=== PATIENT | female | born 1960 | race Caucasian/White ===

== ENCOUNTER 2022-02-03 12:31 | Inpatient (IN) | payer MEDICAID ==
[~2022-02-03] VITALS: Ht 172.7 cm; Wt 88.1 kg
[2022-02-03 13:17] LABS: BASOPHILS % (AUTO) 0.2 % (0-1); EOSINOPHILS # (AUTO) 0.1 X10'3 (0-0.9); EOSINOPHILS % (AUTO) 0.3 % (0-6); HEMATOCRIT 24.3 % (35.0-45.0); HEMOGLOBIN 7.8 g/dl (12.0-16.0); LYMPHOCYTES # (AUTO) 2.8 X10'3 (1.1-4.8); LYMPHOCYTES % (AUTO) 14.6 % (21-51); MEAN CORPUSCULAR HEMOGLOBIN 25.8 PG (27.0-31.0); MEAN CORPUSCULAR HGB CONC 32.2 g/dL (33.0-36.5); MEAN PLATELET VOLUME 7.3 FL (7.4-10.4); MONOCYTES # (AUTO) 1.3 X10'3 (0-0.9); MONOCYTES % (AUTO) 6.5 % (2-12); NEUTROPHILS # (AUTO) 15.1 X10'3 (1.8-7.7); NEUTROPHILS % (AUTO) 78.4 % (42-75); PLATELET COUNT 466 X10'3 (140-440); RED BLOOD COUNT 3.03 X10'6 (4.20-5.60); RED CELL DISTRIBUTION WIDTH 16.1 % (11.5-14.5); WHITE BLOOD COUNT 19.3 X10'3 (4.5-11.0)
[2022-02-03 13:28] LABS: ALANINE AMINOTRANSFERASE 23 U/L (12-78); ALBUMIN 3.4 G/DL (3.4-5.0); ALBUMIN/GLOBULIN RATIO 0.9 (1.1-1.5); ALKALINE PHOSPHATASE 177 IU/L (46-116); ANION GAP 13 (8-16); ASPARTATE AMINO TRANSFERASE 36 U/L (10-37); BILIRUBIN,TOTAL 0.5 MG/DL (0.1-1.0); BLOOD UREA NITROGEN 67 MG/DL (7-18); BUN/CREATININE RATIO 32.7 (6.6-38.0); CHLORIDE 104 MMOL/L (99-107); CREATININE 2.05 MG/DL (0.40-0.90); GLUCOSE 114 MG/DL (70-104); LIPASE 254 U/L (73-393); POTASSIUM 5.3 MMOL/L (3.5-5.1); SODIUM 136 MMOL/L (135-145); TOTAL CARBON DIOXIDE 19.2 MMOL/L (24-32); TOTAL PROTEIN 7.2 G/DL (6.4-8.2); eGFR 25 ML/MIN
[2022-02-03 14:37] LABS: APTT 64 SECONDS (22-32)
[2022-02-03 14:40] LABS: NUCLEATED RED BLOOD CELLS 1 /100WBC (0-0); PLATELET ESTIMATE INCREASED; POLYCHROMASIA 1+; TOTAL CELLS COUNTED 100; TOXIC VACUOLATION FEW
[2022-02-03 14:41] LABS: ANISOCYTOSIS 1+
[2022-02-03 15:08] LABS: CLARITY,URINE SLIGHTLY CLOUDY (Clear); GLUCOSE, URINE NEGATIVE (Neg); KETONES,URINE NEGATIVE (Neg); LEUKOCYTE ESTERASE ,URINE LARGE (Neg); NITRITES, URINE NEGATIVE (Neg); OCCULT BLOOD,URINE TRACE-INTACT (Neg); PROTEIN,URINE NEGATIVE (Neg); UROBILINOGEN,URINE 0.2 E.U/dL (0.2-1.0)
[2022-02-03] MEDS ORDERED: pantoprazole 40MG/NS 100ML BAG 100 ML IV STA ×3 (15:08→15:39)
[2022-02-03 15:14] LABS: COLOR,URINE STRAW (Yellow); UA COLLECTION TYPE CLN CATCH MIDSTREAM
[2022-02-03] MEDS ORDERED: phytonadione inj. 5 MG in normal saline 100ml IV soln 100 ML IV ONE ×3 (15:15→19:35)
[2022-02-03 15:16] LABS: BACTERIA,URINE 2+ /HPF (Neg); MUCUS STRANDS NONE SEEN /LPF (Neg); RBC,URINE 0-2 /HPF (0-2); SQUAMOUS EPITHELIAL CELL,UR MODERATE /LPF (FEW); TRANSITIONAL EPI CELLS,URINE FEW /HPF; WBC,URINE 30-50 /HPF (0-4)
[2022-02-03] MEDS ORDERED: piperacillin/tazo 4.5gm/100ml 100 ML IV STA ×2 (15:26→15:39)
[2022-02-03] MEDS ORDERED: human prothrombin complex-PCC 500 UNIT/20 ML VIAL IV ONE ×4 (15:30→19:45)
[2022-02-03] MEDS ORDERED: HUMAN PROTHROMBIN COMPLEX PCC IV STA (15:31)
[2022-02-03] MEDS ORDERED: HYDR-3972 PO (15:34)
[2022-02-03] MEDS ORDERED: ALBU17AE26 INH (16:08)
[2022-02-03] MEDS ORDERED: ZALE10CA PO (16:08)
[2022-02-03] MEDS ORDERED: WARF4TAB69 PO (16:08)
[2022-02-03] MEDS ORDERED: LOPE2CAP PO (16:08)
[2022-02-03] MEDS ORDERED: IRBE150T24 PO (16:08)
[2022-02-03] MEDS ORDERED: QUET50TA79 PO (16:08)
[2022-02-03] MEDS ORDERED: METO-384 PO (16:08)
[2022-02-03] MEDS ORDERED: TORS100T15 PO (16:08)
[2022-02-03] MEDS ORDERED: WARF1TAB83 PO (16:08)
--- NOTE | 2022-02-03 17:20 | NUR ---
FFP intitiated using downtime form with second MARIA A Archer
[2022-02-03] MEDS ORDERED: morphine 2 MG/ML inj. syringe IV PRN (19:30)
[2022-02-03] MEDS ORDERED: morphine 4 MG/ML inj SYRINge IV PRN (19:30)
[2022-02-03] MEDS ORDERED: magnesium hydroxide 30ml (MOM) UD suspension PO PRN (19:30)
[2022-02-03] MEDS ORDERED: acetaminophen 325mg tablet PO PRN ×2 (19:30)
[2022-02-03] MEDS ORDERED: ondansetron/PF 4mg/2ml inj IV PRN (19:30)
[2022-02-03] MEDS ORDERED: heparin 10,000 units/1 ML INJ IV PRN (21:50)
[2022-02-03] MEDS ORDERED: heparin 25,000 UNIT/250ml bag 250 ML IV SCH ×2 (21:50→22:05)
[2022-02-03 22:15] VITALS: BP 138/69
[2022-02-03] MEDS: pantoprazole 40MG/NS 100ML BAG 100 ML IV SCH (23:32)
[2022-02-04] VITALS (27 sets, daily range): BP systolic 106–150; BP diastolic 40–97
--- NOTE | 2022-02-04 00:49 | NUR ---
Received pt from ER as bew Addendum: 02/04/22 at 0051 by Jalen Shepherd RN Received pt from er as a new admission. Patient is aox4 and distress observed.
[2022-02-04] MEDS: pantoprazole 40MG/NS 100ML BAG 100 ML IV SCH ×5 (01:00→21:00)
--- NOTE | 2022-02-04 06:18 | NUR ---
Problems reprioritized. Patient report given, questions answered & plan of care reviewed, MARIA A Parr.
[2022-02-04 06:42] LABS: BASOPHILS % (AUTO) 0.2 % (0-1); EOSINOPHILS # (AUTO) 0.2 X10'3 (0-0.9); EOSINOPHILS % (AUTO) 1.2 % (0-6); LYMPHOCYTES % (AUTO) 20.8 % (21-51); MEAN CORPUSCULAR HEMOGLOBIN 26.1 PG (27.0-31.0); MEAN CORPUSCULAR HGB CONC 32.8 g/dL (33.0-36.5); MEAN CORPUSCULAR VOLUME 79.7 FL (78-98); MEAN PLATELET VOLUME 7.4 FL (7.4-10.4); MONOCYTES # (AUTO) 1.1 X10'3 (0-0.9); MONOCYTES % (AUTO) 7.5 % (2-12); NEUTROPHILS # (AUTO) 10.1 X10'3 (1.8-7.7); NEUTROPHILS % (AUTO) 70.3 % (42-75); PLATELET COUNT 365 X10'3 (140-440); RED BLOOD COUNT 2.44 X10'6 (4.20-5.60); RED CELL DISTRIBUTION WIDTH 15.8 % (11.5-14.5); WHITE BLOOD COUNT 14.3 X10'3 (4.5-11.0)
[2022-02-04 06:46] LABS: HEMOGLOBIN 6.4 g/dl (12.0-16.0)
[2022-02-04 06:47] LABS: HEMATOCRIT 19.4 % (35.0-45.0)
[2022-02-04 06:49] LABS: APTT 22 SECONDS (22-32)
[2022-02-04 07:06] LABS: ALANINE AMINOTRANSFERASE 24 U/L (12-78); ALBUMIN/GLOBULIN RATIO 0.9 (1.1-1.5); ALKALINE PHOSPHATASE 147 IU/L (46-116); ANION GAP 3 (8-16); ASPARTATE AMINO TRANSFERASE 34 U/L (10-37); BILIRUBIN,TOTAL 0.5 MG/DL (0.1-1.0); BLOOD UREA NITROGEN 56 MG/DL (7-18); BUN/CREATININE RATIO 28.1 (6.6-38.0); CALCIUM 9.2 MG/DL (8.5-10.1); CHLORIDE 104 MMOL/L (99-107); CREATININE 1.99 MG/DL (0.40-0.90); GLUCOSE 104 MG/DL (70-104); MAGNESIUM 2.4 MG/DL (1.5-2.4); PHOSPHORUS 3.7 MG/DL (2.3-4.5); POTASSIUM 4.1 MMOL/L (3.5-5.1); SODIUM 128 MMOL/L (135-145); TOTAL CARBON DIOXIDE 21.4 MMOL/L (24-32); TOTAL PROTEIN 6.2 G/DL (6.4-8.2); eGFR 26 ML/MIN
[2022-02-04 07:32] LABS: PLATELET ESTIMATE NORMAL; TOTAL CELLS COUNTED 100
[2022-02-04 07:33] LABS: ANISOCYTOSIS 1+; MICROCYTOSIS 1+; POLYCHROMASIA FEW
[2022-02-04] MEDS ORDERED: CefTRIAXone/D5W-Rocephin 1gm 50 ML IV SCH (08:00)
[2022-02-04 14:48] LABS: HEMOGLOBIN 7.1 g/dl (12.0-16.0); MEAN CORPUSCULAR HGB CONC 33.3 g/dL (33.0-36.5); MEAN CORPUSCULAR VOLUME 81.1 FL (78-98); MEAN PLATELET VOLUME 6.9 FL (7.4-10.4); PLATELET COUNT 339 X10'3 (140-440); RED BLOOD COUNT 2.65 X10'6 (4.20-5.60); RED CELL DISTRIBUTION WIDTH 16.3 % (11.5-14.5)
[2022-02-04 14:52] LABS: HEMATOCRIT 21.5 % (35.0-45.0)
[2022-02-05] VITALS (25 sets, daily range): BP systolic 111–161; BP diastolic 50–83
[2022-02-05] MEDS: pantoprazole 40MG/NS 100ML BAG 100 ML IV SCH ×4 (01:57→16:51)
[2022-02-05 04:43] LABS: OCCULT BLOOD STOOL POSITIVE (Neg)
[2022-02-05 04:57] LABS: BASOPHILS % (AUTO) 0.1 % (0-1); EOSINOPHILS # (AUTO) 0.4 X10'3 (0-0.9); EOSINOPHILS % (AUTO) 2.2 % (0-6); LYMPHOCYTES # (AUTO) 3.2 X10'3 (1.1-4.8); LYMPHOCYTES % (AUTO) 19.7 % (21-51); MEAN CORPUSCULAR HEMOGLOBIN 26.6 PG (27.0-31.0); MEAN CORPUSCULAR HGB CONC 32.2 g/dL (33.0-36.5); MEAN CORPUSCULAR VOLUME 82.6 FL (78-98); MEAN PLATELET VOLUME 7.1 FL (7.4-10.4); MONOCYTES # (AUTO) 1.3 X10'3 (0-0.9); MONOCYTES % (AUTO) 8.1 % (2-12); NEUTROPHILS # (AUTO) 11.2 X10'3 (1.8-7.7); NEUTROPHILS % (AUTO) 69.9 % (42-75); PLATELET COUNT 387 X10'3 (140-440); RED BLOOD COUNT 2.64 X10'6 (4.20-5.60); RED CELL DISTRIBUTION WIDTH 16.1 % (11.5-14.5)
[2022-02-05 05:00] LABS: HEMATOCRIT 21.8 % (35.0-45.0)
[2022-02-05 05:18] LABS: APTT 24 SECONDS (22-32)
[2022-02-05 05:21] LABS: ALANINE AMINOTRANSFERASE 21 U/L (12-78); ALBUMIN 2.8 G/DL (3.4-5.0); ALBUMIN/GLOBULIN RATIO 0.9 (1.1-1.5); ALKALINE PHOSPHATASE 143 IU/L (46-116); ANION GAP 9 (8-16); ASPARTATE AMINO TRANSFERASE 25 U/L (10-37); BILIRUBIN,TOTAL 0.3 MG/DL (0.1-1.0); BLOOD UREA NITROGEN 37 MG/DL (7-18); CALCIUM 8.9 MG/DL (8.5-10.1); CHLORIDE 109 MMOL/L (99-107); CREATININE 1.68 MG/DL (0.40-0.90); GLUCOSE 100 MG/DL (70-104); MAGNESIUM 2.2 MG/DL (1.5-2.4); PHOSPHORUS 3.2 MG/DL (2.3-4.5); SODIUM 140 MMOL/L (135-145); TOTAL CARBON DIOXIDE 21.9 MMOL/L (24-32); eGFR 31 ML/MIN
[2022-02-05 05:44] LABS: ANISOCYTOSIS 1+; PLATELET ESTIMATE NORMAL; TOTAL CELLS COUNTED 100
[2022-02-05 05:45] LABS: ELLIPTOCYTES FEW; POLYCHROMASIA FEW
--- NOTE | 2022-02-05 06:34 | NUR ---
Problems reprioritized. Patient report given, questions answered & plan of care reviewed, MARIA A Mendieta
[2022-02-05] MEDS: CefTRIAXone inj 1,000 MG in normal saline 100ml IV soln 100 ML IV SCH (08:00)
[2022-02-05] MEDS: HYDROcodone/acetaminophen 10/325mg tab PO PRN (11:21)
[2022-02-05] MEDS ORDERED: LIDOcaine 1% (10mg/ml) 2ml vial ONE (14:32)
[2022-02-05 17:46] LABS: BASOPHILS % (AUTO) 0.2 % (0-1); EOSINOPHILS # (AUTO) 0.6 X10'3 (0-0.9); HEMOGLOBIN 7.7 g/dl (12.0-16.0); LYMPHOCYTES # (AUTO) 2.9 X10'3 (1.1-4.8); LYMPHOCYTES % (AUTO) 14.6 % (21-51); MEAN CORPUSCULAR HEMOGLOBIN 27.4 PG (27.0-31.0); MEAN CORPUSCULAR HGB CONC 33.5 g/dL (33.0-36.5); MEAN CORPUSCULAR VOLUME 81.8 FL (78-98); MEAN PLATELET VOLUME 7.4 FL (7.4-10.4); MONOCYTES # (AUTO) 1.2 X10'3 (0-0.9); MONOCYTES % (AUTO) 6.2 % (2-12); NEUTROPHILS # (AUTO) 15.2 X10'3 (1.8-7.7); PLATELET COUNT 349 X10'3 (140-440); RED BLOOD COUNT 2.81 X10'6 (4.20-5.60); RED CELL DISTRIBUTION WIDTH 15.5 % (11.5-14.5)
[2022-02-05 17:47] LABS: APTT 20 SECONDS (22-32)
[2022-02-05] MEDS: heparin 10,000 units/1 ML INJ IV PRN (18:50)
--- NOTE | 2022-02-05 19:02 | NUR ---
Problems reprioritized. Patient report given MARIA A Thompson questions answered & plan of care reviewed with .
[2022-02-06] VITALS (24 sets, daily range): BP systolic 114–162; BP diastolic 45–78
[2022-02-06] MEDS: pantoprazole 40MG/NS 100ML BAG 100 ML IV SCH ×6 (01:00→21:38)
--- NOTE | 2022-02-06 01:55 | NUR ---
discharged patient per timmy + kay c/o Jennifer Doe. Addendum: 02/06/22 at 0210 by Jay Shepherd RN, RN ERROR. WRONG PATIENT.
[2022-02-06] MEDS: heparin 10,000 units/1 ML INJ IV PRN ×2 (03:12→21:24)
--- NOTE | 2022-02-06 06:15 | NUR ---
Patient in room CICU 2006. I have received report from Jay SAHA and had the opportunity to ask questions and assume patient care. pt left side sleeping in bed, chest rising and falling evenly. no s/sx acute distress. safety measures in place.
[2022-02-06 06:38] LABS: BASOPHILS % (AUTO) 0.2 % (0-1); EOSINOPHILS # (AUTO) 1.3 X10'3 (0-0.9); EOSINOPHILS % (AUTO) 5.4 % (0-6); HEMOGLOBIN 8.4 g/dl (12.0-16.0); LYMPHOCYTES # (AUTO) 3.8 X10'3 (1.1-4.8); LYMPHOCYTES % (AUTO) 16.6 % (21-51); MEAN CORPUSCULAR HGB CONC 32.4 g/dL (33.0-36.5); MEAN CORPUSCULAR VOLUME 83.2 FL (78-98); MEAN PLATELET VOLUME 7.4 FL (7.4-10.4); MONOCYTES # (AUTO) 1.7 X10'3 (0-0.9); MONOCYTES % (AUTO) 7.5 % (2-12); NEUTROPHILS # (AUTO) 16.3 X10'3 (1.8-7.7); NEUTROPHILS % (AUTO) 70.3 % (42-75); PLATELET COUNT 447 X10'3 (140-440); RED BLOOD COUNT 3.12 X10'6 (4.20-5.60); RED CELL DISTRIBUTION WIDTH 16.3 % (11.5-14.5); WHITE BLOOD COUNT 23.2 X10'3 (4.5-11.0)
[2022-02-06 06:42] LABS: APTT 35 SECONDS (22-32)
[2022-02-06 06:59] LABS: ALANINE AMINOTRANSFERASE 22 U/L (12-78); ALBUMIN 3.1 G/DL (3.4-5.0); ALKALINE PHOSPHATASE 154 IU/L (46-116); ANION GAP 11 (8-16); ASPARTATE AMINO TRANSFERASE 25 U/L (10-37); BILIRUBIN,TOTAL 0.4 MG/DL (0.1-1.0); BLOOD UREA NITROGEN 22 MG/DL (7-18); BUN/CREATININE RATIO 15.2 (6.6-38.0); CALCIUM 9.3 MG/DL (8.5-10.1); CHLORIDE 110 MMOL/L (99-107); CREATININE 1.45 MG/DL (0.40-0.90); GLUCOSE 101 MG/DL (70-104); PHOSPHORUS 3.5 MG/DL (2.3-4.5); SODIUM 141 MMOL/L (135-145); TOTAL CARBON DIOXIDE 20.5 MMOL/L (24-32); TOTAL PROTEIN 6.3 G/DL (6.4-8.2); eGFR 37 ML/MIN
[2022-02-06] MEDS: heparin 25,000 UNIT/250ml bag 250 ML IV SCH (07:38)
[2022-02-06] MEDS: CefTRIAXone inj 1,000 MG in normal saline 100ml IV soln 100 ML IV SCH (07:39)
[2022-02-06 08:33] LABS: TOTAL CELLS COUNTED 100
[2022-02-06 08:34] LABS: ANISOCYTOSIS 1+; PLATELET ESTIMATE INCREASED
[2022-02-06 10:45] LABS: APTT 22 SECONDS (22-32)
[2022-02-06] MEDS ORDERED: heparin 10,000 units/1 ML INJ IV ONE (11:00)
[2022-02-06] MEDS ORDERED: HYDROcodone/acetaminophen 10/325mg tab PO PRN (11:35)
[2022-02-06] MEDS ORDERED: albuterol 2.5 MG/3 ML nebule NEB PRN (11:35)
--- NOTE | 2022-02-06 13:00 | NUR ---
Problems reprioritized. Patient report given, questions answered & plan of care reviewed with Calvin SAHA.
[2022-02-06] MEDS ORDERED: MIDAZolam 1 MG/ML 5ML VIAL ONE ×2 (16:35→16:36)
[2022-02-06] MEDS ORDERED: fentaNYL/PF 50MCG/1 ML 2ML syringe ONE ×2 (16:35→16:55)
[2022-02-06] MEDS ORDERED: LIDOcaine Viscous 15ml cup ONE (16:36)
[2022-02-06] MEDS: zolpidem 5mg tablet PO SCH (21:00)
[2022-02-06] MEDS ORDERED: warfarin 10mg tablet PO ONE (21:00)
[2022-02-06] MEDS: HYDROcodone/acetaminophen 10/325mg tab PO PRN (21:27)
[2022-02-06] MEDS: QUETIAPINE 50 MG TAB.SR.24H PO SCH (21:28)
--- NOTE | 2022-02-06 23:00 | NUR ---
Problems reprioritized. Patient report given to MARIA A Hilario, questions answered & plan of care reviewed with .
--- NOTE | 2022-02-06 23:54 | NUR ---
Received pt via wheelchair AAOX4, pt oriented to room and staff. Pt denied pain or any other discomfort. Fall precaution initiated, call light bedside stable and pump placed with reach. IV medication infusing well.
--- NOTE | 2022-02-07 00:27 | NUR ---
No skin deficit noted on transfer except scattered bruises to lower extremities. Large bruise to left upper arm.
[2022-02-07] MEDS: pantoprazole 40MG/NS 100ML BAG 100 ML IV SCH ×3 (01:00→11:23)
[2022-02-07 02:00] VITALS: BP 138/60
[2022-02-07 03:47] LABS: BASOPHILS % (AUTO) 0.1 % (0-1); EOSINOPHILS # (AUTO) 0.4 X10'3 (0-0.9); EOSINOPHILS % (AUTO) 3.3 % (0-6); HEMATOCRIT 23.2 % (35.0-45.0); HEMOGLOBIN 7.5 g/dl (12.0-16.0); LYMPHOCYTES # (AUTO) 1.9 X10'3 (1.1-4.8); LYMPHOCYTES % (AUTO) 14.6 % (21-51); MEAN CORPUSCULAR HEMOGLOBIN 26.9 PG (27.0-31.0); MEAN CORPUSCULAR HGB CONC 32.2 g/dL (33.0-36.5); MEAN CORPUSCULAR VOLUME 83.5 FL (78-98); MEAN PLATELET VOLUME 7.2 FL (7.4-10.4); MONOCYTES # (AUTO) 0.8 X10'3 (0-0.9); MONOCYTES % (AUTO) 5.8 % (2-12); NEUTROPHILS % (AUTO) 76.2 % (42-75); PLATELET COUNT 365 X10'3 (140-440); RED BLOOD COUNT 2.78 X10'6 (4.20-5.60); RED CELL DISTRIBUTION WIDTH 16.3 % (11.5-14.5); WHITE BLOOD COUNT 13.1 X10'3 (4.5-11.0)
[2022-02-07 04:07] LABS: ALANINE AMINOTRANSFERASE 24 U/L (12-78); ALBUMIN 2.8 G/DL (3.4-5.0); ALKALINE PHOSPHATASE 149 IU/L (46-116); ANION GAP 10 (8-16); ASPARTATE AMINO TRANSFERASE 28 U/L (10-37); BILIRUBIN,TOTAL 0.2 MG/DL (0.1-1.0); BLOOD UREA NITROGEN 20 MG/DL (7-18); BUN/CREATININE RATIO 14.8 (6.6-38.0); CALCIUM 8.7 MG/DL (8.5-10.1); CHLORIDE 112 MMOL/L (99-107); CREATININE 1.35 MG/DL (0.40-0.90); GLUCOSE 103 MG/DL (70-104); PHOSPHORUS 4.2 MG/DL (2.3-4.5); SODIUM 142 MMOL/L (135-145); TOTAL CARBON DIOXIDE 20.4 MMOL/L (24-32); TOTAL PROTEIN 5.7 G/DL (6.4-8.2); eGFR 40 ML/MIN
[2022-02-07] MEDS: heparin 10,000 units/1 ML INJ IV PRN (04:48)
[2022-02-07 06:00] VITALS: BP 137/53
[2022-02-07] MEDS: metoprolol succinate 25mg (24-HOUR) SR. Tablet PO SCH (08:31)
[2022-02-07] MEDS: losartan 50mg tablet PO SCH (08:32)
[2022-02-07] MEDS: CefTRIAXone inj 1,000 MG in normal saline 100ml IV soln 100 ML IV SCH (08:32)
[2022-02-07] MEDS: heparin 25,000 UNIT/250ml bag 250 ML IV SCH ×2 (09:50→22:30)
[2022-02-07 11:00] VITALS: BP 111/66
--- NOTE | 2022-02-07 14:41 | NUR ---
Initial: Pt admit for GIB and anemia. Currently on a regular diet and overall eating well with mostly 75-100% PO intake throughout LOS meeting estimated nutrient needs. LB 02/06. No nutrition intervention implemented at this time. Will continue to follow. Recommendations: 1) Continue regular diet 2) Bowel care per rx 3) Weekly scaled weights Addendum: 02/07/22 at [address] Amended: Links added.
[2022-02-07 15:00] VITALS: BP 102/47
--- NOTE | 2022-02-07 18:18 | NUR ---
Problems reprioritized. Patient report given, questions answered & plan of care reviewed with Jessy SAHA.
[2022-02-07] MEDS: QUETIAPINE 50 MG TAB.SR.24H PO SCH (20:20)
[2022-02-07] MEDS: zolpidem 5mg tablet PO SCH (20:26)
[2022-02-07] MEDS ORDERED: warfarin 3mg tablet PO ONE (21:00)
[2022-02-07 22:00] VITALS: BP 131/68
--- NOTE | 2022-02-07 22:32 | NUR ---
ptt 81. heparin decreased by 1 unit. order to redraw in 6 hour.
[2022-02-08] VITALS (9 sets, daily range): BP systolic 98–144; BP diastolic 40–84
[2022-02-08 05:59] LABS: BASOPHILS % (AUTO) 0.3 % (0-1); EOSINOPHILS # (AUTO) 0.3 X10'3 (0-0.9); EOSINOPHILS % (AUTO) 2.5 % (0-6); HEMOGLOBIN 7.1 g/dl (12.0-16.0); LYMPHOCYTES # (AUTO) 2.4 X10'3 (1.1-4.8); LYMPHOCYTES % (AUTO) 18.8 % (21-51); MEAN CORPUSCULAR HGB CONC 32.3 g/dL (33.0-36.5); MEAN CORPUSCULAR VOLUME 83.4 FL (78-98); MEAN PLATELET VOLUME 7.6 FL (7.4-10.4); MONOCYTES # (AUTO) 0.6 X10'3 (0-0.9); NEUTROPHILS # (AUTO) 9.5 X10'3 (1.8-7.7); NEUTROPHILS % (AUTO) 73.4 % (42-75); PLATELET COUNT 334 X10'3 (140-440); RED BLOOD COUNT 2.64 X10'6 (4.20-5.60); RED CELL DISTRIBUTION WIDTH 16.5 % (11.5-14.5); WHITE BLOOD COUNT 12.9 X10'3 (4.5-11.0)
[2022-02-08 06:11] LABS: ALANINE AMINOTRANSFERASE 34 U/L (12-78); ALBUMIN 2.6 G/DL (3.4-5.0); ALBUMIN/GLOBULIN RATIO 0.8 (1.1-1.5); ALKALINE PHOSPHATASE 158 IU/L (46-116); ANION GAP 12 (8-16); ASPARTATE AMINO TRANSFERASE 36 U/L (10-37); BILIRUBIN,TOTAL 0.2 MG/DL (0.1-1.0); BLOOD UREA NITROGEN 20 MG/DL (7-18); BUN/CREATININE RATIO 15.2 (6.6-38.0); CALCIUM 8.8 MG/DL (8.5-10.1); CHLORIDE 114 MMOL/L (99-107); CREATININE 1.32 MG/DL (0.40-0.90); GLUCOSE 96 MG/DL (70-104); MAGNESIUM 1.9 MG/DL (1.5-2.4); PHOSPHORUS 3.3 MG/DL (2.3-4.5); POTASSIUM 3.9 MMOL/L (3.5-5.1); SODIUM 145 MMOL/L (135-145); TOTAL CARBON DIOXIDE 19.2 MMOL/L (24-32); eGFR 41 ML/MIN
[2022-02-08 07:50] LABS: ANISOCYTOSIS 1+; PLATELET ESTIMATE NORMAL; TOTAL CELLS COUNTED 100
[2022-02-08 07:51] LABS: LARGE PLATELETS FEW; POIKILOCYTOSIS FEW
[2022-02-08] MEDS: pantoprazole 40mg Tablet.DR PO SCH (08:24)
[2022-02-08] MEDS: losartan 50mg tablet PO SCH (08:25)
[2022-02-08] MEDS: metoprolol succinate 25mg (24-HOUR) SR. Tablet PO SCH (08:25)
[2022-02-08] MEDS: heparin 25,000 UNIT/250ml bag 250 ML IV SCH (08:35)
[2022-02-08] MEDS: CefTRIAXone inj 1,000 MG in normal saline 100ml IV soln 100 ML IV SCH (08:43)
[2022-02-08] MEDS: heparin 10,000 units/1 ML INJ IV PRN (17:33)
--- NOTE | 2022-02-08 18:32 | NUR ---
Problems reprioritized. Patient report given, questions answered & plan of care reviewed with Jessy SAHA.
[2022-02-08] MEDS: QUETIAPINE 50 MG TAB.SR.24H PO SCH (20:10)
[2022-02-08] MEDS: zolpidem 5mg tablet PO SCH (20:10)
[2022-02-08] MEDS ORDERED: warfarin 5mg tablet PO ONE (21:00)
--- NOTE | 2022-02-09 00:30 | NUR ---
ptt 139. Order per protocol to hold heparin for 2 hours and decrease rate by 3 units. Redraw at 0430. Explained to patient. Will continue to monitor.
[2022-02-09] MEDS: HYDROcodone/acetaminophen 10/325mg tab PO PRN ×2 (01:31→07:30)
[2022-02-09 02:00] VITALS: BP 136/59
[2022-02-09] MEDS: heparin 25,000 UNIT/250ml bag 250 ML IV SCH (02:49)
[2022-02-09 06:00] VITALS: BP 101/67
[2022-02-09 06:11] LABS: BASOPHILS % (AUTO) 0.3 % (0-1); EOSINOPHILS # (AUTO) 0.5 X10'3 (0-0.9); EOSINOPHILS % (AUTO) 4.2 % (0-6); HEMOGLOBIN 7.2 g/dl (12.0-16.0); LYMPHOCYTES % (AUTO) 18.3 % (21-51); MEAN CORPUSCULAR HEMOGLOBIN 28.1 PG (27.0-31.0); MEAN CORPUSCULAR HGB CONC 33.7 g/dL (33.0-36.5); MEAN CORPUSCULAR VOLUME 83.4 FL (78-98); MEAN PLATELET VOLUME 7.4 FL (7.4-10.4); MONOCYTES # (AUTO) 0.7 X10'3 (0-0.9); NEUTROPHILS % (AUTO) 71.2 % (42-75); PLATELET COUNT 356 X10'3 (140-440); RED BLOOD COUNT 2.57 X10'6 (4.20-5.60); RED CELL DISTRIBUTION WIDTH 16.7 % (11.5-14.5); WHITE BLOOD COUNT 11.2 X10'3 (4.5-11.0)
[2022-02-09 06:41] LABS: HEMATOCRIT 21.5 % (35.0-45.0)
[2022-02-09 06:55] LABS: ALANINE AMINOTRANSFERASE 46 U/L (12-78); ALBUMIN 2.6 G/DL (3.4-5.0); ALBUMIN/GLOBULIN RATIO 0.9 (1.1-1.5); ALKALINE PHOSPHATASE 177 IU/L (46-116); ANION GAP 15 (8-16); ASPARTATE AMINO TRANSFERASE 45 U/L (10-37); BILIRUBIN,TOTAL 0.2 MG/DL (0.1-1.0); BLOOD UREA NITROGEN 19 MG/DL (7-18); BUN/CREATININE RATIO 14.8 (6.6-38.0); CALCIUM 8.9 MG/DL (8.5-10.1); CHLORIDE 112 MMOL/L (99-107); CREATININE 1.28 MG/DL (0.40-0.90); GLUCOSE 105 MG/DL (70-104); MAGNESIUM 1.8 MG/DL (1.5-2.4); SODIUM 146 MMOL/L (135-145); TOTAL CARBON DIOXIDE 19.4 MMOL/L (24-32); TOTAL PROTEIN 5.4 G/DL (6.4-8.2); eGFR 43 ML/MIN
[2022-02-09] MEDS: metoprolol succinate 25mg (24-HOUR) SR. Tablet PO SCH (07:29)
[2022-02-09] MEDS: losartan 50mg tablet PO SCH (07:29)
[2022-02-09] MEDS: pantoprazole 40mg Tablet.DR PO SCH (07:29)
[2022-02-09 07:31] LABS: TOTAL CELLS COUNTED 100
[2022-02-09] MEDS: CefTRIAXone inj 1,000 MG in normal saline 100ml IV soln 100 ML IV SCH (07:31)
[2022-02-09 07:32] LABS: ANISOCYTOSIS 1+; PLATELET ESTIMATE NORMAL
[2022-02-09] MEDS: heparin 10,000 units/1 ML INJ IV PRN (07:53)
[2022-02-09] MEDS ORDERED: heparin 25,000 UNIT/250ml bag 250 ML IV SCH (08:30)
[2022-02-09] MEDS ORDERED: PANT40TA54 PO (10:28)
[2022-02-09] MEDS ORDERED: WARF-55 PO (10:35)
[2022-02-09 11:00] VITALS: BP 106/62
[2022-02-09] MEDS ORDERED: ENOX40SY7 SQ (20:09)
== END 2022-02-09 15:27 | disposition home or self-care (01) | DRG 253 ==
LOC: ER 12:32 → ED HOLD 19:39 → CICU 2S 21:45 → PCU 3S 02-06 23:43
PROVIDERS: ADMIT Hospitalist; ATTEND Hospitalist
PROC: 30233K1 Transfusion of Nonautologous Frozen Plasma into Peripheral Vein, Percutaneous Approach (ICD-10-PCS; 2022-02-03)
PROC: 30233N1 Transfusion of Nonautologous Red Blood Cells into Peripheral Vein, Percutaneous Approach (ICD-10-PCS; principal; 2022-02-04)
PROC: 0DB78ZX Excision of Stomach, Pylorus, Via Natural or Artificial Opening Endoscopic, Diagnostic (ICD-10-PCS; 2022-02-06)
DX: K92.2 Gastrointestinal hemorrhage, unspecified (principal); N17.0 Acute kidney failure with tubular necrosis; D68.69 Other thrombophilia; D68.9 Coagulation defect, unspecified; E87.1 Hypo-osmolality and hyponatremia; I13.0 Hypertensive heart and chronic kidney disease with heart failure and stage 1 through stage 4 chronic kidney disease, or unspecified chronic kidney disease; I50.9 Heart failure, unspecified; D62 Acute posthemorrhagic anemia; T45.515A Adverse effect of anticoagulants, initial encounter; B96.4 Proteus (mirabilis) (morganii) as the cause of diseases classified elsewhere; F32.A Depression, unspecified; N18.30 Chronic kidney disease, stage 3 unspecified; K90.0 Celiac disease; F41.9 Anxiety disorder, unspecified; K29.70 Gastritis, unspecified, without bleeding; Z20.822 Contact with and (suspected) exposure to COVID-19; K29.80 Duodenitis without bleeding; I48.0 Paroxysmal atrial fibrillation; I25.10 Atherosclerotic heart disease of native coronary artery without angina pectoris; K44.9 Diaphragmatic hernia without obstruction or gangrene; N39.0 Urinary tract infection, site not specified; B96.20 Unspecified Escherichia coli [E. coli] as the cause of diseases classified elsewhere; Z95.2 Presence of prosthetic heart valve; Z95.1 Presence of aortocoronary bypass graft; Z79.01 Long term (current) use of anticoagulants; Y92.89 Other specified places as the place of occurrence of the external cause; Z79.899 Other long term (current) drug therapy
CPT/HCPCS: 36415; 36430; 43239; 71045; 80053; 81001; 82272; 83605; 83690; 83735; 84100; 85007; 85025; 85027; 85610; 85730; 86885; 86900; 86901; 86920; 87077; 87081; 87088; 87186; 87635; 93005; 96365; 96368; 96375; 97110; 97161; 97530; 99152; 99153; 99291; 99292; C9113; G0378; J0696; J1644; J2250; J2270; J2405; J2543; J3010; J3430; J3490; J7168; P9016; P9059